=== PATIENT | male | born 1960 | race Caucasian/White ===

== ENCOUNTER 2016-06-20 19:15 | Emergency (ER) | payer SELFPAY ==
[~2016-06-20] VITALS: Ht 167.6 cm; Wt 89.4 kg
[~2016-06-20 19:15] MED LIST: AMOXICILLIN/PO500 MG PO; AUGMENTIN500TAB PO; AUGMENTIN875TAB PO; BACTRIM DS1 TAB PO; BENADRYL 50MG C50 MG PO; CLINDAMYCIN300 M1 PO; DELTASONE20 MG PO; ERYTHROMYCIN BAS1 GM OD; Levaquin PO
[2016-06-20 19:36] VITALS: BP 135/85
== END 2016-06-20 19:47 | disposition left against medical advice (07) | DRG 951 ==
LOC: ED 19:15 → LWOBS 19:47
DX: Z91.19 Patient's noncompliance with other medical treatment and regimen (principal)

== ENCOUNTER 2016-07-22 21:28 | Observation (INO) | payer SELFPAY ==
[~2016-07-22] VITALS: Ht 167.6 cm; Wt 90.1 kg
--- NOTE | 2016-07-22 21:41 | NUR ---
PT RETURNED TO WAITING ROOM IN STABLE CONDITION
--- NOTE | 2016-07-22 21:45 | NUR ---
PATIENT TO ROOM 5. AWAITING MD WHYTE.
[2016-07-22 22:18] LABS: HEMATOCRIT 44.1 % (39.0-50.0); HEMOGLOBIN 14.8 g/dl (14.0-18.0); IMMATURE GRANULOCYTES 0.8 % (0.0-1.0); MEAN CELL VOLUME 87.2 fL CALC (80.0-100.0); MEAN CORPUSCULAR HGB 29.2 pG CALC (26.0-32.0); MEAN CORPUSCULAR HGB CONC 33.6 g/L CALC (32.0-36.0); NEUT# 24.33 thou/uL (1.82-7.42); RED BLOOD COUNT 5.06 mill/uL (4.70-6.10); RED CELL DISTRI WIDTH 13.8 % (11.5-15.5)
--- NOTE | 2016-07-22 22:25 | NUR ---
PATIENT MEDICATED WITH ABX ORDERED.
[2016-07-22 22:32] LABS: ALBUMIN 3.5 g/dL (3.2-5.0); ALKALINE PHOSPHATASE 80 u/l (38-126); ANION GAP 14 (6-22 (CALC)); BUN 11 mg/dL (9-20); BUN/CREATININE RATIO 11 (12-20 (CALC)); CALCIUM 9.1 mg/dL (8.4-10.2); CARBON DIOXIDE 24 mmol/l (22-30); CHLORIDE 101 mmol/l (95-108); GFR > 60 ML/MIN (>=60 (CALC)); GFR FOR AFR.AMER. > 60 ML/MIN (>=60 (CALC)); GLUCOSE 104 mg/dL (75-110); SGOT/AST 18 u/l (17-59); SGPT/ALT 30 u/l (21-72); SODIUM 135 mmol/l (137-146); TOTAL PROTEIN 7.2 g/dL (6.3-8.2)
--- NOTE | 2016-07-22 23:02 | NUR ---
SECOND ABX HUNG. PATIENT TOLERATING WELL. DENIES ANY COMPLAINTS AT PRESENT TIME.
--- NOTE | 2016-07-22 23:35 | NUR ---
DR BLANK AT BEDSIDE TO DISCUSS RESULTS AND PLAN OF CARE. PATIENT TO BE ADMITTED.
--- NOTE | 2016-07-23 00:26 | NUR ---
REPORT CALLED TO [facility] WEEKS. PATIENT READIED FOR TRANSPORT TO FLOOR.
[2016-07-23 00:40] VITALS: BP 127/85
--- NOTE | 2016-07-23 00:40 | NUR ---
PT ARRIVED TO UNIT VIA WHEELCHAIR WITH NGUYỄN ALLISON. AMBULATED TO BED INDEPENDENTLY. DENIES PAIN AT THIS TIME. RESPIRATIONS EVEN AND UNLABORED. PT ORIENTED TO ROOM. SAFETY MEASURES IN PLACE. CALL LIGHT SYSTEM REVIEWED AND IN REACH.
[2016-07-23 04:15] VITALS: BP 107/67
--- NOTE | 2016-07-23 04:15 | NUR ---
PT ASLEEP AT THIS TIME. NO SIGNS OF PAIN OR DISCOMFORT. RESPIRATIONS EVEN AND UNLABORED. IV FLUIDS INFUSING APPROPIRATELY. IV SITE APPEARS HEALTHY. SAFETY MEASURES IN PLACE. CALL LIGHT WITHIN REACH.
[2016-07-23 06:25] LABS: HEMATOCRIT 40.3 % (39.0-50.0); HEMOGLOBIN 13.4 g/dl (14.0-18.0); IMMATURE GRANULOCYTES 0.7 % (0.0-1.0); MEAN CELL VOLUME 87.8 fL CALC (80.0-100.0); MEAN CORPUSCULAR HGB 29.2 pG CALC (26.0-32.0); MEAN CORPUSCULAR HGB CONC 33.3 g/L CALC (32.0-36.0); NEUT# 15.33 thou/uL (1.82-7.42); RED BLOOD COUNT 4.59 mill/uL (4.70-6.10); RED CELL DISTRI WIDTH 13.7 % (11.5-15.5)
[2016-07-23 06:30] LABS: ANION GAP 10 (6-22 (CALC)); BUN 10 mg/dL (9-20); BUN/CREATININE RATIO 12 (12-20 (CALC)); CALCIUM 8.7 mg/dL (8.4-10.2); CARBON DIOXIDE 24 mmol/l (22-30); CHLORIDE 107 mmol/l (95-108); CREATININE 0.9 mg/dL (0.7-1.3); GFR > 60 ML/MIN (>=60 (CALC)); GFR FOR AFR.AMER. > 60 ML/MIN (>=60 (CALC)); GLUCOSE 100 mg/dL (75-110); SODIUM 136 mmol/l (137-146)
--- NOTE | 2016-07-23 07:00 | NUR ---
RECIEVED BEDSIDE REPORT FROM MICKY CASAREZ. RESTING IN BED WITH EYES CLOSED, AWAKENS EASILY. RESPS EVEN AND UNLABORED ON ROOM AIR. DENIES PAIN OR DISCOMFORT. PLAN OF CARE DISCUSSED. SAFETY PRECAUTIONS REINFORCED. BED IN LOWEST POSITION WITH WHEELS LOCKED. CALL LIGHT WITHIN REACH. ENCOURAGED PT TO CALL FOR ANY NEEDS.
[2016-07-23 09:19] VITALS: BP 117/74
--- NOTE | 2016-07-23 10:00 | NUR ---
DR MCINTYRE IN WITH PT, NEW ORDERS RECEIVED.
--- NOTE | 2016-07-23 10:07 | NUR ---
Vancomycin dosing Age: 55 years Weight: 90.1 kg Height: 167.64 cm Gender: Male SCR: 0.9 mg/dl Dosing weight: 74.32 kg IBW: 63.80 kg CRCL (ml/min): 83.7 Pierre (hr-1): 0.074 Half-life (hrs): 9.37 Vd (liters): 63.07 (factor: 0.7 L/kg) Vancomycin 1250 mg q12 hrs to produce a predicted peak of 31 mcg/ml and a predicted trough of 15 mcg/ml based on (Population-based pharmacokinetic analysis). Vancomycin trough on 07/25/16 at 0930, 30 minutes prior to dose.
[2016-07-23] MEDS ORDERED: MYRAC100 MG PO (11:36)
[2016-07-23] MEDS ORDERED: AUGMENTIN875TAB PO (11:36)
--- NOTE | 2016-07-23 12:10 | NUR ---
TO CT SCAN IN STABLE CONDITION VIA WHEELCHAIR ACCOMPANIED BY SAMANTHA SANFORD.
--- NOTE | 2016-07-23 12:35 | NUR ---
RETURNED FROM CT VIA WHEELCHAIR ACCOMPANIED BY SAMANTHA SANFORD. PT AMBULATED TO BED WITH STEADY GAIT. #18 LFA INFUSING WITHOUT DIFFICULTY, SITE APPEARS HEALTHY. DENIES PAIN OR DISCOMFORT. CALL LIGHT WITHIN REACH. WILL CONTINUE TO MONITOR.
--- NOTE | 2016-07-23 16:03 | NUR ---
Discharge instructions given. Patient verbalizes understanding of same. Discharged in stable condition via Wheelchair to Home with family. All belongings sent with pt.
== END 2016-07-23 16:00 | disposition home or self-care (01) | DRG 603 ==
LOC: ENPENDDIS → ED 21:28 → ED-I 23:00 → ED 07-23 00:12 → MS2 07-23 00:13
PROVIDERS: Emergency Medicine; ADMIT Internal Medicine; ATTEND Internal Medicine
DX: L03.116 Cellulitis of left lower limb (principal); F17.220 Nicotine dependence, chewing tobacco, uncomplicated; L81.8 Other specified disorders of pigmentation
CPT/HCPCS: G0378; J3370

== ENCOUNTER 2016-09-04 14:21 | Emergency (ER) | payer SELFPAY ==
[~2016-09-04] VITALS: Ht 167.6 cm; Wt 200.0 kg
[~2016-09-04 14:21] MED LIST changes: +MYRAC100 MG PO
[2016-09-04] MEDS ORDERED: PERMETHRIN5 % EX (14:54)
[2016-09-04] MEDS ORDERED: BENADRYL 50MG C50 MG PO (14:54)
[2016-09-04] MEDS ORDERED: BACTRIM DS1 TAB PO (14:54)
[2016-09-04 15:06] VITALS: BP 142/91
== END 2016-09-04 15:14 | disposition home or self-care (01) | DRG 603 ==
LOC: ED 14:21
PROC: 0H9HXZX Drainage of Right Upper Leg Skin, External Approach, Diagnostic (ICD-10-PCS; principal; 2016-09-04)
DX: L02.415 Cutaneous abscess of right lower limb (principal); B86 Scabies; F17.290 Nicotine dependence, other tobacco product, uncomplicated

== ENCOUNTER 2017-01-12 20:10 | Observation (INO) | payer OTHER ==
[~2017-01-12] VITALS: Ht 167.6 cm; Wt 84.0 kg
[~2017-01-12 20:10] MED LIST changes: +PERMETHRIN5 % EX
[2017-01-12 20:41] LABS: HEMATOCRIT 46.2 % (39.0-50.0); HEMOGLOBIN 15.9 g/dl (14.0-18.0); IMMATURE GRANULOCYTES 0.4 % (0.0-1.0); MEAN CORPUSCULAR HGB 29.6 pG CALC (26.0-32.0); MEAN CORPUSCULAR HGB CONC 34.4 g/L CALC (32.0-36.0); NEUT# 4.42 thou/uL (1.82-7.42); RED BLOOD COUNT 5.37 mill/uL (4.70-6.10); RED CELL DISTRI WIDTH 12.7 % (11.5-15.5)
[2017-01-12 20:56] LABS: ALBUMIN 4.1 g/dL (3.2-5.0); ALKALINE PHOSPHATASE 80 u/l (38-126); ANION GAP 15 (6-22 (CALC)); BILIRUBIN, TOTAL 0.7 mg/dL (0.0-1.4); BUN 11 mg/dL (9-20); BUN/CREATININE RATIO 12 (12-20 (CALC)); CALCIUM 8.9 mg/dL (8.4-10.2); CARBON DIOXIDE 27 mmol/l (22-30); CHLORIDE 106 mmol/l (95-108); CREATININE 0.9 mg/dL (0.7-1.3); GFR > 60 ML/MIN (>=60 (CALC)); GFR FOR AFR.AMER. > 60 ML/MIN (>=60 (CALC)); GLUCOSE 95 mg/dL (75-110); SGOT/AST 40 u/l (17-59); SGPT/ALT 46 u/l (21-72); SODIUM 143 mmol/l (137-146); TOTAL PROTEIN 7.3 g/dL (6.3-8.2)
[2017-01-12 21:03] LABS: ACT PARTIAL THROMBO TIME 26.4 SECONDS (20.0-32.5); PROTHROMBIN TIME 10.7 SECONDS (9.0-12.5)
[2017-01-12 21:07] LABS: MYOGLOBIN 33 ng/mL (0 - 121)
[2017-01-12 21:41] LABS: URINE BILIRUBIN - DIPSTICK NEGATIVE (NEGATIVE); URINE BLOOD DIPSTICK NEGATIVE (NEGATIVE); URINE CLARITY CLEAR; URINE COLOR YELLOW; URINE GLUCOSE - DIPSTICK NEGATIVE (NEGATIVE); URINE KETONE NEGATIVE (NEGATIVE); URINE LEUK ESTERASE NEGATIVE (NEGATIVE); URINE NITRITE - DIPSTICK NEGATIVE (Negative); URINE PROTEIN - DIPSTICK NEGATIVE (NEG-TRACE); URINE SPECIFIC GRAVITY 1.015; URINE UROBILINOGEN - DIPSTICK 0.2 E.U./dL (0.2)
[2017-01-12 21:44] LABS: BARBITURATES NEGATIVE (NEGATIVE); COCAINE NEGATIVE (NEGATIVE); METHADONE NEGATIVE (NEGATIVE); OXCYCODONE NEGATIVE (NEGATIVE); TETRAHYDROCANNABIONOL NEGATIVE (NEGATIVE); TRICYLIC ANTIDEPRESSANTS NEGATIVE (NEGATIVE)
[2017-01-12 22:30] VITALS: BP 131/78
[2017-01-13 05:38] VITALS: BP 107/57
[2017-01-13 06:17] LABS: CHOLESTEROL HDL RATIO 5.3 (<4.4 (CALC))
[2017-01-13] MEDS ORDERED: EC ASPIRIN325 MG PO (10:27)
[2017-01-13] MEDS ORDERED: ASPIRIN ADULT L81 M2 PO (11:43)
[2017-01-13] MEDS ORDERED: PEPCID20 MG PO (11:43)
== END 2017-01-13 12:31 | DRG 311 ==
LOC: ED 20:10 → ED-I 21:37 → ED 21:48 → MS2 21:49
PROVIDERS: Emergency Medicine; Internal Medicine; ADMIT Internal Medicine; ATTEND Internal Medicine
DX: I20.9 Angina pectoris, unspecified (principal); Z87.891 Personal history of nicotine dependence
CPT/HCPCS: G0378